=== PATIENT | female | born 1995 | race Asian ===

== ENCOUNTER 2017-10-28 08:43 | Emergency (ER) | payer BC ==
[2017-10-28 09:49] LABS: #Lymphocytes 0.6 thou/uL (1.20-3.40); #Monocytes 0.6 thou/uL (0.11-0.59); #Neutrophils 4.6 thou/uL (1.40-6.50); %Basophils 0.4 % (0.0-1.0); %Eosinophils 0.3 % (0.0-10.0); %Lymphocytes 9.8 % (21.0-51.0); %Monocytes 9.8 % (0.0-10.0); Hematocrit 36.3 % (36.0-47.0); Mean Platelet Volume 8.7 fL (7.4-10.4); White Blood Cell (WBC) Count 5.8 thou/uL (4.8-10.8)
[2017-10-28 09:57] LABS: Bilirubin Negative (Negative); Blood, Urine Negative (Negative); Glucose, Urine (Dipstick) Negative (Negative); Ketone, Urine 15 mg/dL (Negative); Nitrite Negative (Negative); Protein, Urine (Dipstick) Trace mg/dL (Neg-Trace); Urobilinogen 0.2 mg/dL (0.2-1.0)
[2017-10-28 10:11] LABS: Anion Gap 11 mmol/L (10-20); BUN (Urea Nitrogen) 10 mg/dL (7.0-18.7); CK (CPK) 43 U/L (29-168); Calc. Creatinine Clearance 0 mL/min (70-130); Calcium 8.7 mg/dL (7.8-10.44); Carbon Dioxide 25 mmol/L (22-29); Chloride 106 mmol/L (98-107); Estimated GFR-MDRD Greater than 90
== END 2017-10-28 10:58 | disposition home or self-care (01) ==
LOC: ERS 08:43
DX: J10.1 Influenza due to other identified influenza virus with other respiratory manifestations (principal)
CPT/HCPCS: 36415; 80048; 81003; 81025; 82550; 85025; 85379; 93005; 96360